=== PATIENT | female | born 1980 | race Two or more races ===

== ENCOUNTER → 2025-06-09 | Outpatient (CLI) | payer MEDICAID, SELFPAY ==
--- NOTE | 2025-06-09 11:15 | XR_ITS ---
Examination: Breast ultrasound, unilateral, right Date and time of exam: June 09, 2025, 1106 hours INDICATIONS: Mammogram May 20, 2000 2320 mm focal asymmetry outer right breast, focal masses upper left breast 14 mm and in the axillary region 20 mm, patient states right breast pain 8 months Technique: Real-time burdick scale ultrasonographic imaging performed right breast including all 4 quadrants as well as nipple retroareolar and axillary region. Findings: 3:00 cyst 3 x 3 mm 9:00 cyst 3 x 4 mm Axillary lymph node 3.6 cm IMPRESSION: Recommend follow-up diagnostic mammography
== END | disposition home or self-care (01) ==
PROVIDERS: PCP Student in an Organized Health Care Education/Training Program; Referring Provider Student in an Organized Health Care Education/Training Program; Visit Provider Student in an Organized Health Care Education/Training Program
DX: N63.14 Unspecified lump in the right breast, lower inner quadrant (principal)
CPT/HCPCS: 76641